=== PATIENT | female | born 1990 | race Caucasian/White ===

== ENCOUNTER → 2018-01-17 | Outpatient (CLI) | payer MEDICAID | END | disposition home or self-care (01) | LOC: U/S 14:03 | DX: O36.71X0 Maternal care for viable fetus in abdominal pregnancy, first trimester, not applicable or unspecified (principal); Z3A.08 8 weeks gestation of pregnancy | CPT/HCPCS: 76801; 76817 ==

== ENCOUNTER 2018-08-21 12:23 | Inpatient (IN) | payer MEDICAID ==
[2018-08-21] MEDS ORDERED: METHYLERGONOVINE 0.2 MG INJ IM ×2 (14:00→20:00)
[2018-08-21] MEDS ORDERED: OXYTOCIN 30 UNITS/LR 500 ML IV ×3 (14:00→20:00)
[2018-08-21] MEDS ORDERED: MISOPROSTOL 200 MCG TAB PR ×2 (14:00→20:00)
[2018-08-21] MEDS ORDERED: CARBOPROST 250 MCG INJ IM ×2 (14:00→20:00)
[2018-08-21] MEDS: LACTATED RINGER'S 1,000 ML IV ×2 (14:29→14:48)
[2018-08-21 14:35] LABS: ADD MAN DIFF? NO
[2018-08-21 14:38] LABS: ABNORMAL IP MESSAGE 1; BASOPHILS % 0.3 % (0.0-2.0); EOSINOPHILS # 0.1 10^3/ul (0.0-0.5); EOSINOPHILS % 1.2 % (0.0-7.0); HEMATOCRIT 37.6 % (37.0-47.0); HEMOGLOBIN 12.4 g/dl (12.0-16.0); LYMPHOCYTES # 2.9 10^3/ul (0.8-2.9); LYMPHOCYTES % 26.7 % (15.0-51.0); MEAN CORPUSCULAR HEMOGLOBIN 30.8 pg (29.0-33.0); MEAN CORPUSCULAR VOLUME 93.3 fl (82.0-101.0); MONOCYTE # 0.6 10^3/ul (0.3-0.9); MONOCYTES % 5.6 % (0.0-11.0); NEUTROPHIL # 7.2 10^3/ul (1.6-7.5); NEUTROPHILS % 65.1 % (39.0-77.0); PLATELET COUNT 96 10^3/UL (140-415); RED BLOOD COUNT 4.03 10^6/ul (4.20-5.40); RED CELL DISTRIBUTION WIDTH 13.9 % (11.5-14.5)
[2018-08-21 14:46] LABS: POSITIVE DIFF @See below
[2018-08-21] MEDS: FAMOTIDINE 20 MG INJ IV (14:48)
[2018-08-21] MEDS: METOCLOPRAMIDE 10 MG INJ IV (14:48)
[2018-08-21] MEDS: CITRIC ACID/NA CITRATE 30 ML CUP PO (14:48)
[2018-08-21 15:03] LABS: INR 0.84; PROTIME 11.6 Sec (11.9-14.9); PT RATIO 0.9
[2018-08-21 15:04] LABS: PARTIAL THROMBOPLASTIN TIME 27.2 Sec (23.0-35.0)
[2018-08-21] MEDS ORDERED: morphine SULFATE/PF (10 MG/10 ML) INJ (15:17)
[2018-08-21] MEDS ORDERED: ONDANSETRON 4 MG INJ (15:33)
[2018-08-21] MEDS ORDERED: EPHEDrine 25 MG/5 ML SYG (15:36)
[2018-08-21] MEDS ORDERED: PHENYLephrine (100 MCG/ML) 10ML SYG (15:36)
[2018-08-21] MEDS ORDERED: PROCHLORPERAZINE 10 MG INJ IV (16:00)
[2018-08-21] MEDS ORDERED: ONDANSETRON 4 MG INJ IV ×2 (16:00→17:00)
[2018-08-21] MEDS ORDERED: KETOROLAC 30 MG INJ IV (16:00)
[2018-08-21] MEDS ORDERED: MEPERIDINE 25 MG INJ IV (16:00)
[2018-08-21] MEDS ORDERED: HYDROmorphONE 1 MG/5 ML IV SYRINGE IV ×3 (16:00)
[2018-08-21] MEDS ORDERED: DIPHENHYDRAMINE 50 MG INJ IV ×2 (16:00→17:00)
[2018-08-21] MEDS ORDERED: FENTAnyl 50 MCG/ML VIAL IV ×3 (16:00)
[2018-08-21] MEDS ORDERED: ZOLPIDEM 5 MG TAB PO (17:00)
[2018-08-21] MEDS ORDERED: NALOXONE (0.4 MG/ML) INJ IV (17:00)
[2018-08-21] MEDS ORDERED: HYDROmorphONE 0.5 MG/0.5 ML SYG IV ×2 (17:00)
[2018-08-21 17:21] LABS: RAPID PLASMA REAGIN NONREACTIVE (NR)
[2018-08-21] MEDS: CEFAZOLIN 2 GM/50 ML (PMX) 50 ML IVPB ×2 (18:22→22:59)
[2018-08-21] MEDS: KETOROLAC 30 MG INJ IV (18:25)
[2018-08-21] MEDS: OXYTOCIN 30 UNITS/LR 500 ML IV ×2 (18:27→18:34)
[2018-08-21] MEDS: AZITHROMYCIN 500MG/NS (PMX) 250 ML IVPB (18:28)
[2018-08-21] MEDS ORDERED: HYDROCODONE/APAP (5/325) TAB PO (20:00)
[2018-08-21] MEDS ORDERED: OXYCODONE/ACETAMINOPHEN (5/325) TAB PO (20:00)
[2018-08-21] MEDS ORDERED: LANOLIN HPA 1 PKT TOP (20:00)
[2018-08-21] MEDS ORDERED: NA PHOSPHATE/BIPHOS 133 ML ENEMA PR (20:00)
[2018-08-21] MEDS: SENNA/DOCUSATE NA (8.6MG/50MG) TAB PO (21:00)
[2018-08-21] MEDS: IBUPROFEN 800 MG TAB PO (22:00)
[2018-08-22] MEDS: LACTATED RINGER'S 1,000 ML IV (05:08)
[2018-08-22] MEDS: IBUPROFEN 800 MG TAB PO ×3 (06:00→21:21)
[2018-08-22] MEDS: CEFAZOLIN 2 GM/50 ML (PMX) 50 ML IVPB ×2 (06:41→15:12)
[2018-08-22] MEDS: KETOROLAC 30 MG INJ IV ×2 (08:23→15:12)
[2018-08-22 08:47] LABS: ADD MAN DIFF? NO
[2018-08-22 08:58] LABS: WHITE BLOOD COUNT 9.2 10^3/ul (4.8-10.8)
[2018-08-22 08:58] LABS: ABNORMAL IP MESSAGE 1; BASOPHILS % 0.3 % (0.0-2.0); EOSINOPHILS % 0.4 % (0.0-7.0); HEMATOCRIT 22.4 % (37.0-47.0); HEMOGLOBIN 7.4 g/dl (12.0-16.0); LYMPHOCYTES # 1.8 10^3/ul (0.8-2.9); LYMPHOCYTES % 19.9 % (15.0-51.0); MEAN CORPUSCULAR HEMOGLOBIN 31.1 pg (29.0-33.0); MEAN CORPUSCULAR VOLUME 94.1 fl (82.0-101.0); MONOCYTE # 0.5 10^3/ul (0.3-0.9); MONOCYTES % 5.6 % (0.0-11.0); NEUTROPHIL # 6.7 10^3/ul (1.6-7.5); NEUTROPHILS % 73.1 % (39.0-77.0); PLATELET COUNT 90 10^3/UL (140-415); RED BLOOD COUNT 2.38 10^6/ul (4.20-5.40); RED CELL DISTRIBUTION WIDTH 13.7 % (11.5-14.5)
[2018-08-22 09:08] LABS: POSITIVE DIFF @See below
[2018-08-22] MEDS: SENNA/DOCUSATE NA (8.6MG/50MG) TAB PO ×2 (09:14→21:21)
[2018-08-22] MEDS: BISACODYL 10 MG SUPP PR (09:14)
[2018-08-22 12:12] LABS: HEMATOCRIT 23.1 % (37.0-47.0); HEMOGLOBIN 7.8 g/dl (12.0-16.0)
[2018-08-22] MEDS: CLINDAMYCIN 300 MG CAP PO (18:21)
[2018-08-22] MEDS: ACETAMINOPHEN 500 MG TAB PO (19:41)
[2018-08-22 20:15] LABS: HEPATITIS B SURFACE ANTIGEN NEGATIVE (NEGATIVE)
[2018-08-23] MEDS: CLINDAMYCIN 300 MG CAP PO ×5 (00:07→23:58)
[2018-08-23] MEDS: IBUPROFEN 800 MG TAB PO ×3 (05:36→21:38)
[2018-08-23] MEDS: SENNA/DOCUSATE NA (8.6MG/50MG) TAB PO ×2 (09:00→21:38)
[2018-08-23] MEDS ORDERED: ACETAMINOPHEN 325 MG TAB PO (13:30)
[2018-08-24] MEDS: CLINDAMYCIN 300 MG CAP PO ×2 (05:55→11:34)
[2018-08-24] MEDS: IBUPROFEN 800 MG TAB PO (05:55)
[2018-08-24] MEDS: DIPHTH/TET/ACEL PERTUSS (ADULT) 0.5 ML VIAL IM* (08:03)
[2018-08-24] MEDS: SENNA/DOCUSATE NA (8.6MG/50MG) TAB PO (09:00)
[2018-08-24] MEDS: MEASLES,MUMPS,RUBELLA VACCINE INJ SC* (09:52)
[2018-08-25 13:03] LABS: PLATELET ANTIBODY - IGA NEGATIVE (NEGATIVE); PLATELET ANTIBODY - IGG NEGATIVE (NEGATIVE); PLATELET ANTIBODY - IGM NEGATIVE (NEGATIVE)
== END 2018-08-24 14:42 | disposition home or self-care (01) | DRG 788 ==
LOC: L-D 12:23 → PP1 19:25
PROVIDERS: Obstetrics & Gynecology
PROC: 10D00Z1 Extraction of Products of Conception, Low, Open Approach (ICD-10-PCS; principal; 2018-08-21 15:00)
PROC: 3E033VJ Introduction of Other Hormone into Peripheral Vein, Percutaneous Approach (ICD-10-PCS; 2018-08-21 15:00)
DX: O32.1XX0 Maternal care for breech presentation, not applicable or unspecified (principal); Z3A.39 39 weeks gestation of pregnancy; Z37.0 Single live birth
CPT/HCPCS: 76815; 85014; 85018; 85025; 85610; 85730; 86022; 86592; 86850; 86900; 86901; 87340; 99464

== ENCOUNTER 2018-09-27 21:31 | Emergency (ER) | payer MEDICAID ==
[2018-09-27] MEDS: IBUPROFEN 800 MG TAB PO (23:48)
[2018-09-27] MEDS: ACETAMINOPHEN 500 MG TAB PO (23:48)
[2018-09-28] MEDS: TRIMETHOPRIM/SULFAMETHOX (DS) TAB PO (01:08)
== END 2018-09-28 01:49 | disposition home or self-care (01) ==
LOC: FTE 09-28 01:49
DX: N61.0 Mastitis without abscess (principal)
CPT/HCPCS: 76642; 99284-25